=== PATIENT | male | born 1995 | race Caucasian/White ===

== ENCOUNTER 2019-10-24 18:23 | Emergency (ER) | payer OTHER ==
[~2019-10-24] VITALS: Ht 180.3 cm; Wt 113.6 kg
[2019-10-24 18:38] VITALS: BP 144/76
[2019-10-24] MEDS ORDERED: gentamicin 0.3% ophthalmic drops 5ML LEFTEYE ONE (19:55)
[2019-10-24] MEDS ORDERED: TETanus/Pertussis (Acell)/Diphther VAC/PF (Tdap-Adult) 0.5ml syringe IMVAC ONE (19:55)
[2019-10-24] MEDS ORDERED: SULF5DRO LEFTEYE (20:04)
== END 2019-10-24 20:13 | disposition home or self-care (01) ==
LOC: ER 18:24
DX: S00.212A Abrasion of left eyelid and periocular area, initial encounter (principal); H11.32 Conjunctival hemorrhage, left eye; F17.200 Nicotine dependence, unspecified, uncomplicated; F12.90 Cannabis use, unspecified, uncomplicated; Z72.89 Other problems related to lifestyle; Z79.899 Other long term (current) drug therapy; X58.XXXA Exposure to other specified factors, initial encounter; Y93.89 Activity, other specified; Y92.89 Other specified places as the place of occurrence of the external cause; Y99.8 Other external cause status
CPT/HCPCS: 90471; 90715; 99283